=== PATIENT | female | born 1950 | race Two or more races ===

== ENCOUNTER 2020-01-02 09:29 | Outpatient (CLI) | payer OTHER ==
[~2020-01-02] VITALS: Ht 157.5 cm; Wt 49.9 kg
== END 2020-01-02 15:39 | disposition home or self-care (01) ==
LOC: OFIC 805 09:29
PROVIDERS: ATTEND Otolaryngology
DX: K11.5 Sialolithiasis (principal); K11.3 Abscess of salivary gland; M35.01 Sjogren syndrome with keratoconjunctivitis